=== PATIENT | female | born 1960 | race African-American/Black ===

== ENCOUNTER 2023-05-28 10:28 | Day surgery (SDC) | payer OTHER ==
[2023-05-25 12:08] VITALS: BMI 28.2
[2023-05-28] MEDS ORDERED: PROPOFOL 20 ML ONE (11:08)
[2023-05-28] MEDS ORDERED: Midazolam HCl 2 mg/2 ml Vial ONE (11:08)
[2023-05-28] MEDS ORDERED: PROPOFOL 40 ML ONE (11:42)
== END 2023-05-28 12:38 | disposition home or self-care (01) ==
LOC: CSHSDC 10:28
PROVIDERS: ATTEND Internal Medicine Gastroenterology
PROC: 0DBL8ZZ Excision of Transverse Colon, Via Natural or Artificial Opening Endoscopic (ICD-10-PCS; principal; 2023-05-28)
PROC: 0DD68ZX Extraction of Stomach, Via Natural or Artificial Opening Endoscopic, Diagnostic (ICD-10-PCS; 2023-05-28)
DX: K63.5 Polyp of colon (principal); K44.9 Diaphragmatic hernia without obstruction or gangrene; K31.89 Other diseases of stomach and duodenum; K31.7 Polyp of stomach and duodenum; K64.9 Unspecified hemorrhoids; I10 Essential (primary) hypertension; M19.90 Unspecified osteoarthritis, unspecified site; M54.31 Sciatica, right side; E78.5 Hyperlipidemia, unspecified; K21.9 Gastro-esophageal reflux disease without esophagitis; N18.9 Chronic kidney disease, unspecified; F32.A Depression, unspecified; K58.9 Irritable bowel syndrome, unspecified; Z90.710 Acquired absence of both cervix and uterus; Z96.651 Presence of right artificial knee joint; Z88.6 Allergy status to analgesic agent; Z79.899 Other long term (current) drug therapy
CPT/HCPCS: 88305; J2250; J2704

== ENCOUNTER 2023-08-14 12:28 | Outpatient (CLI) | payer OTHER | END 2023-08-14 12:29 | disposition home or self-care (01) | LOC: CSHMAMMO 12:28 | PROVIDERS: ATTEND Internal Medicine | DX: Z12.31 Encounter for screening mammogram for malignant neoplasm of breast (principal); Z98.890 Other specified postprocedural states | CPT/HCPCS: 77063; 77067 ==

== ENCOUNTER 2024-05-19 08:26 | Day surgery (SDC) | payer OTHER ==
[2024-05-19] MEDS ORDERED: Sodium Bicarbonate 2.5 MEQ/5 ML SDV ONE (08:55)
[2024-05-19] MEDS ORDERED: Lidocaine 1% PF 5 ML VIAL ONE (08:55)
[2024-05-19 10:04] VITALS: BP 126/79; TEMP 97.3
[2024-05-19] MEDS ORDERED: FLU (Fluarix Triv) TS24-25(6MOS UP)/PF 45 MCG/0.5 ML Syringe IM ONE (12:00)
== END 2024-05-19 09:40 | disposition home or self-care (01) ==
LOC: CSHULT 08:26
PROVIDERS: ATTEND Internal Medicine
PROC: 0G9 Endocrine System, Drainage (ICD-10-PCS; principal; 2024-05-19)
DX: E04.1 Nontoxic single thyroid nodule (principal); I12.9 Hypertensive chronic kidney disease with stage 1 through stage 4 chronic kidney disease, or unspecified chronic kidney disease; N18.31 Chronic kidney disease, stage 3a; K21.9 Gastro-esophageal reflux disease without esophagitis; K58.1 Irritable bowel syndrome with constipation; F33.0 Major depressive disorder, recurrent, mild; E78.00 Pure hypercholesterolemia, unspecified; E11.9 Type 2 diabetes mellitus without complications; Z79.899 Other long term (current) drug therapy; Z79.84 Long term (current) use of oral hypoglycemic drugs
CPT/HCPCS: 76536; 88173; 88305

== ENCOUNTER 2025-06-01 14:16 | Outpatient (CLI) | payer OTHER | END 2025-06-01 14:17 | disposition home or self-care (01) | LOC: CSHULT 14:16 | PROVIDERS: ATTEND Internal Medicine | DX: E04.1 Nontoxic single thyroid nodule (principal) | CPT/HCPCS: 76536 ==